=== PATIENT | male | born 1950 | race Caucasian/White ===

== ENCOUNTER 2019-08-12 09:37 | Outpatient (CLI) | payer MEDICARE, SELFPAY ==
[2019-08-12 10:36] LABS: Hematocrit 47.3 % (42.0-52.0); Mean Corpuscular HGB Conc 33.8 g/dl (32-36); Mean Corpuscular Hemoglobin 30.8 pg (26-34); Mean Platelet Volume 8.8 fl (7.4-10.4); Platelet Count Result 236 k/mm3 (150-375); Red Cell Distribution Width 13.1 % (11.5-14.5); White Blood Count 9.9 K/mm3 (4.5-10.0)
[2019-08-12 10:49] LABS: Alanine Aminotransferase 24 U/L (4-50); Albumin Level 4.6 g/dL (3.5-5.1); Alkaline Phosphatase 122 U/L (38-126); Aspartate Amino Transferase 25 U/L (17-59); Bilirubin,Total 0.7 mg/dL (0.2-1.3); Blood Urea Nitrogen 19 mg/dL (9-20); Calcium 9.1 mg/dL (8.4-10.2); Carbon Dioxide 27 mmol/L (22-30); Chloride 99 mmol/L (98-107); Estimated Glomerular Filt Rate > 60; Glucose 103 mg/dL (75-110); Potassium 3.9 mmol/L (3.4-5.0); Sodium 134 mmol/L (137-145)
[2019-08-12 11:16] LABS: Free T4 Free Thyroxine 1.16 ng/mL (0.78-2.19)
[2019-08-12 14:06] LABS: Hemoglobin A1C 5.9 % (<5.7)
[2019-08-12 15:24] LABS: Prostate Specific Antigen 0.7 ng/mL (< OR = 4.0)
[2019-08-12 15:25] LABS: Total Triiodothyronine (T3) 1.61 NG/ML (0.97-1.69)
== END 2019-08-12 09:38 | disposition home or self-care (01) ==
PROVIDERS: PCP Family Medicine; Visit Provider Family Medicine
DX: R73.09 Other abnormal glucose (principal); I10 Essential (primary) hypertension; E03.9 Hypothyroidism, unspecified; N40.0 Benign prostatic hyperplasia without lower urinary tract symptoms; E04.9 Nontoxic goiter, unspecified
CPT/HCPCS: 36415; 80053; 83036; 84153; 84439; 84443; 84480; 85027

== ENCOUNTER 2019-11-06 00:12 | Outpatient (CLI) | payer MEDICARE, SELFPAY ==
[2019-11-06 18:00] LABS: SARS-CoV-2 RNA PCR Negative
== END 2019-11-06 00:13 | disposition home or self-care (01) ==
LOC: ANHCOVIDDT 00:15
PROVIDERS: PCP Family Medicine; Visit Provider Internal Medicine Gastroenterology
DX: Z01.812 Encounter for preprocedural laboratory examination (principal); Z20.828 Contact with and (suspected) exposure to other viral communicable diseases
CPT/HCPCS: 87635; C9803; U0003

== ENCOUNTER 2019-11-09 01:04 | Day surgery (SDC) | payer MEDICARE, SELFPAY ==
[2019-11-02 10:04] VITALS: BMI 44.6
[2019-11-09 09:01] VITALS: BP 139/69; PULSE 72; RESP 20; TEMP 35.9; O2SAT 97
[2019-11-09] MEDS: LACTATED RINGERS 1,000 ML 150 ML IV CONT (09:16)
--- NOTE | 2019-11-09 09:16 | WPDANESEPPF ---
Anes - Initial Pre Proc Eval Procedure: Operation Date: 11/09/19 10:00 Proposed Procedures p Screening Colonoscopy - Gabino Guzman MD Date/Time: 11/09/19 09:16 Surgeon: Gabino Guzman MD Pre Op Diagnosis: Neoplasm Screening Patient Data Age: 69 Gender: M Height: 5 ft 7 in Weight: 127.9 kg Last Vital Signs Temp 35.9 C L 11/09/19 09:01 Pulse 72 11/09/19 09:01 Resp 20 11/09/19 09:01 BP 139/69 11/09/19 09:01 Pulse Ox 97 11/09/19 09:01 Allergies Allergy/AdvReac Type Severity Reaction Status Date / Time No Known Allergies Allergy Unverified 11/09/19 08:59 Home Medications Medication Instructions Recorded Confirmed Type aspirin 81 mg tablet,delayed 81 mg PO DAILY 06/03/19 11/09/19 History release levothyroxine 112 mcg tablet 112 mcg PO DAILY 06/03/19 11/09/19 History metoprolol succinate 50 mg 50 mg PO DAILY #90 tablet 06/15/19 11/09/19 Rx tablet,extended release 24 hr tamsulosin 0.4 mg capsule 0.4 mg PO DAILY #90 cap 07/13/19 11/02/19 Rx azelastine 137 mcg (0.1 %) nasal 137 mcg NASAL Q12H #30 ml 08/19/19 11/09/19 Rx spray aerosol atorvastatin 20 mg tablet 20 mg PO DAILY #90 tablet 08/24/19 11/09/19 Rx furosemide 20 mg tablet 20 mg PO QAM #90 tablet 08/24/19 11/09/19 Rx valsartan 320 1 tablet PO DAILY #90 tablet 09/13/19 11/02/19 Rx mg-hydrochlorothiazide 12.5 mg tablet nifedipine 60 mg tablet,extended 60 mg PO DAILY #90 tablet 10/07/19 11/09/19 Rx release liothyronine 25 mcg tablet 25 mcg PO DAILY #60 tablet 10/13/19 11/02/19 Rx fluticasone propionate 50 1 spray NASAL BID #18.2 ml 10/15/19 11/09/19 Rx mcg/actuation nasal spray,suspension peg 3350-electrolytes 236 240 ml PO Q10M #4000 ml 11/04/19 Rx gram-22.74 gram-6.74 gram-5.86 gram solution Patient hx anesthesia problems: none Family hx anesthesia problems: none PMFSH Past Medical History Medical History BPH (benign prostatic hyperplasia) Essential (primary) hypertension Hypothyroidism, unspecified Morbid (severe) obesity due to excess calories Nonrheumatic aortic (valve) stenosis Family History Family History Sibling Family history of premature coronary heart disease Social History Social History Social History: Smoking packs per day: 1 Smoking cigarettes per day: 20.0 Years smoked: 15 Smoking pack-years: 15.00 Smoking status: Former smoker Tobacco type: cigarettes Second hand tobacco smoke exposure: No Smoking end date: 06/09/89 Alcohol intake: current Drinks per week: 12 Substance use: never Substance use type: does not use Gender identity (if verbalized by the patient): Male Anes - Eval Final PreProcedure Day of Procedure 11/09/19 09:16 Patient weight: morbidly obese Heart: regular rate and rhythm Lungs: decreased breath sounds Airway: Mallampati scale class II Neurological: alert and oriented Last oral intake: >/= 8 hours ASA classification: III Emergent: no Anesthetic plan: proceed Anesthesia type and monitoring: general GIVS and standard monitoring Informed Consent: The patient's anesthetic plan and its attendant risks and benefits were discussed with the patient/family/POA. Questions were solicited and answers provided to the satisfaction of the patient/family/POA.
--- NOTE | 2019-11-09 10:06 | PM.HPGS ---
History of Present Illness History of Present Illness Consent: Risks, benefits, and alternatives have been discussed and questions answered. Patient agrees to proceed with procedure. Chief complaint: Neoplasm Screening Narrative: Gil Friedman is a 69 year old male here for screening colon, last colonoscopy 10 years ago Review of Systems Constitutional: Constitutional: Denies headache(s) and Denies weakness Eyes: Eyes: Denies blurry vision ENT: Reports Normal hearing present, Denies headache(s) and Denies neck pain Cardiovascular: Cardiovascular: Denies chest pain and Denies dyspnea Respiratory: Respiratory: Denies dyspnea Gastrointestinal: Gastrointestinal: Reports no additional gastrointestinal complaints Genitourinary: Genitourinary: Denies dysuria Musculoskeletal: Musculoskeletal: Denies neck pain Integumentary/Breasts: Skin/Breast: Denies dry skin Neurologic: Reports Normal hearing present, Denies headache(s) and Denies weakness Psychiatric: Psychiatric: Denies anxiety Endocrine: Endocrine: Denies change in body appearance Hematologic/Lymphatic: Hematologic/Lymphatic: Denies easy bleeding Allergic/Immunologic: Allergic/Immunologic: Denies urticaria PMFSH Past Medical History Medical History BPH (benign prostatic hyperplasia) Essential (primary) hypertension Hypothyroidism, unspecified Morbid (severe) obesity due to excess calories Nonrheumatic aortic (valve) stenosis Family History Family History Sibling Family history of premature coronary heart disease Social History Social History Social History: Smoking packs per day: 1 Smoking cigarettes per day: 20.0 Years smoked: 15 Smoking pack-years: 15.00 Smoking status: Former smoker Tobacco type: cigarettes Second hand tobacco smoke exposure: No Smoking end date: 06/09/89 Alcohol intake: current Drinks per week: 12 Substance use: never Substance use type: does not use Gender identity (if verbalized by the patient): Male Meds Home Medications and Allergies Home Medications Medication Instructions Recorded Confirmed Type aspirin 81 mg tablet,delayed 81 mg PO DAILY 06/03/19 11/09/19 History release levothyroxine 112 mcg tablet 112 mcg PO DAILY 06/03/19 11/09/19 History metoprolol succinate 50 mg 50 mg PO DAILY #90 tablet 06/15/19 11/09/19 Rx tablet,extended release 24 hr tamsulosin 0.4 mg capsule 0.4 mg PO DAILY #90 cap 07/13/19 11/02/19 Rx azelastine 137 mcg (0.1 %) nasal 137 mcg NASAL Q12H #30 ml 08/19/19 11/09/19 Rx spray aerosol atorvastatin 20 mg tablet 20 mg PO DAILY #90 tablet 08/24/19 11/09/19 Rx furosemide 20 mg tablet 20 mg PO QAM #90 tablet 08/24/19 11/09/19 Rx valsartan 320 1 tablet PO DAILY #90 tablet 09/13/19 11/02/19 Rx mg-hydrochlorothiazide 12.5 mg tablet nifedipine 60 mg tablet,extended 60 mg PO DAILY #90 tablet 10/07/19 11/09/19 Rx release liothyronine 25 mcg tablet 25 mcg PO DAILY #60 tablet 10/13/19 11/02/19 Rx fluticasone propionate 50 1 spray NASAL BID #18.2 ml 10/15/19 11/09/19 Rx mcg/actuation nasal spray,suspension peg 3350-electrolytes 236 240 ml PO Q10M #4000 ml 11/04/19 Rx gram-22.74 gram-6.74 gram-5.86 gram solution Allergies Allergy/AdvReac Type Severity Reaction Status Date / Time No Known Allergies Allergy Unverified 11/09/19 08:59 Vital Signs Vital Signs - 24 hr 11/09/19 09:01 Temperature 96.6 F L Pulse Rate 72 Respiratory Rate 20 Blood Pressure 139/69 Pulse Oximetry 97 Exam Const: General: comfortable and no acute distress HENMT: General nose exam: Normal nares present Eyes: General: appearance normal, both eyes and all related structures Neck: Neck: no JVD Resp: Auscultation: clear to auscultation bilaterally Cardi
[2019-11-09 10:10] VITALS: BP 116/71; PULSE 62; RESP 20; O2SAT 92
[2019-11-09 10:18] VITALS: BP 110/54; PULSE 63; RESP 16; O2SAT 94
== END 2019-11-09 10:35 | disposition home or self-care (01) ==
PROVIDERS: PCP Family Medicine; Visit Provider Internal Medicine Gastroenterology
PROC: 0DJD8ZZ Inspection of Lower Intestinal Tract, Via Natural or Artificial Opening Endoscopic (ICD-10-PCS; CPT 45378; principal; 2019-11-09 10:00)
DX: Z12.11 Encounter for screening for malignant neoplasm of colon (principal); D12.2 Benign neoplasm of ascending colon; K63.5 Polyp of colon; K57.30 Diverticulosis of large intestine without perforation or abscess without bleeding; I10 Essential (primary) hypertension; E03.9 Hypothyroidism, unspecified; I35.0 Nonrheumatic aortic (valve) stenosis; N40.0 Benign prostatic hyperplasia without lower urinary tract symptoms; E66.01 Morbid (severe) obesity due to excess calories; Z68.41 Body mass index [BMI] 40.0-44.9, adult; Z87.891 Personal history of nicotine dependence; Z79.82 Long term (current) use of aspirin
CPT/HCPCS: 45380; 88305; J2001; J2704; J7120

== ENCOUNTER 2019-11-25 07:30 | Outpatient (CLI) | payer MEDICARE, SELFPAY ==
[2019-11-25 08:32] LABS: Blood Urea Nitrogen 20 mg/dL (9-20); Calcium 8.9 mg/dL (8.4-10.2); Carbon Dioxide 27 mmol/L (22-30); Chloride 101 mmol/L (98-107); Estimated Glomerular Filt Rate > 60; Glucose 127 mg/dL (75-110); Sodium 135 mmol/L (137-145)
[2019-11-25 09:00] LABS: Thyroid Stimulating Hormone 0.566 uIU/mL (0.465-4.680)
[2019-11-25 09:02] LABS: Free T4 Free Thyroxine 1.25 ng/mL (0.78-2.19)
== END 2019-11-25 07:31 | disposition home or self-care (01) ==
PROVIDERS: PCP Family Medicine; Visit Provider Family Medicine
DX: R73.01 Impaired fasting glucose (principal); E04.9 Nontoxic goiter, unspecified; E03.9 Hypothyroidism, unspecified; I10 Essential (primary) hypertension
CPT/HCPCS: 36415; 80048; 83036; 84439; 84443

== ENCOUNTER 2020-02-22 07:29 | Outpatient (CLI) | payer MEDICARE, SELFPAY ==
[2020-02-22 07:59] LABS: Basophils Percent Auto 0.3 % (0.2-1.2); Eosinophils Absolute Auto 0.2 K/mm3 (0-0.3); Eosinophils Percent Auto 1.5 % (0-4.4); Hematocrit 45.7 % (42.0-52.0); Hemoglobin 15.5 g/dL (14.0-18.0); Immature Granulocyte Absolute 0.03 K/mm3 (0.00-0.031); Immature Granulocyte Percent A 0.3 % (0-0.5); Lymphocytes Absolute Auto 2.36 K/mm3 (0.9-3.2); Lymphocytes Percent Auto 24.2 % (18.3-44.2); Mean Corpuscular HGB Conc 33.9 g/dl (32-36); Mean Corpuscular Hemoglobin 31.1 pg (26-34); Mean Corpuscular Volume 91.8 fl (80-100); Mean Platelet Volume 9.1 fl (7.4-10.4); Monocytes Absolute Auto 0.6 K/mm3 (0.1-0.6); Monocytes Percent Auto 6.5 % (2.6-8.5); Neutrophils Absolute Auto 6.6 K/mm3 (1.3-6.7); Neutrophils Percent Auto 67.2 % (45.5-73.1); Platelet Count Result 257 k/mm3 (150-375); Red Blood Count 4.98 M/mm3 (4.6-6.20); Red Cell Distribution Width 13.1 % (11.5-14.5); White Blood Count 9.8 K/mm3 (4.5-10.0)
[2020-02-22 08:10] LABS: Alanine Aminotransferase 25 U/L (4-50); Albumin Level 4.2 g/dL (3.5-5.1); Alkaline Phosphatase 113 U/L (38-126); Anion Gap 9 mmol/L (8-16); Aspartate Amino Transferase 19 U/L (17-59); Bilirubin,Total 0.4 mg/dL (0.2-1.3); Blood Urea Nitrogen 16 mg/dL (9-20); Calcium 9.1 mg/dL (8.4-10.2); Carbon Dioxide 27 mmol/L (22-30); Chloride 99 mmol/L (98-107); Estimated Glomerular Filt Rate > 60; Glucose 116 mg/dL (75-110); Potassium 4.2 mmol/L (3.4-5.0); Sodium 135 mmol/L (137-145)
[2020-02-22 08:13] LABS: Hemoglobin A1C 5.6 % (<5.7)
== END 2020-02-22 07:30 | disposition home or self-care (01) ==
LOC: ANHLAB 07:31
PROVIDERS: PCP Family Medicine; Visit Provider Physician Assistant
DX: R73.03 Prediabetes (principal); I10 Essential (primary) hypertension
CPT/HCPCS: 36415; 80053; 83036; 85025

== ENCOUNTER 2020-05-23 09:12 | Outpatient (CLI) | payer MEDICARE, SELFPAY ==
[2020-05-23 10:03] LABS: Anion Gap 6 mmol/L (8-16); Blood Urea Nitrogen 14 mg/dL (9-20); Calcium 9.2 mg/dL (8.4-10.2); Carbon Dioxide 32 mmol/L (22-30); Chloride 97 mmol/L (98-107); Estimated Glomerular Filt Rate > 60; Glucose 115 mg/dL (75-110); Potassium 4.1 mmol/L (3.4-5.0); Sodium 135 mmol/L (137-145)
== END 2020-05-23 09:13 | disposition home or self-care (01) ==
PROVIDERS: PCP Family Medicine; Visit Provider Family Medicine
DX: E87.1 Hypo-osmolality and hyponatremia (principal)
CPT/HCPCS: 36415; 80048

== ENCOUNTER 2020-08-22 07:51 | Outpatient (CLI) | payer MEDICARE, SELFPAY ==
[2020-08-22 08:21] LABS: Cholesterol 136 mg/dL (0-200); HDL Direct 42 mg/dL; Triglycerides 111 mg/dL (<150)
[2020-08-22 08:33] LABS: LDL Cholesterol Direct 71 mg/dL
[2020-08-22 09:10] LABS: Free T4 Free Thyroxine 1.09 ng/mL (0.78-2.19)
[2020-08-22 09:14] LABS: Total Triiodothyronine (T3) 1.26 NG/ML (0.97-1.69)
[2020-08-22 09:15] LABS: Hemoglobin A1C 5.4 % (<5.7)
[2020-08-24 19:52] LABS: PSA, Free 0.32 ng/mL; PSA, Total 0.5 ng/mL (<=4.0)
== END 2020-08-22 07:52 | disposition home or self-care (01) ==
LOC: ANHLAB 07:56
PROVIDERS: PCP Family Medicine; Visit Provider Family Medicine
DX: E78.2 Mixed hyperlipidemia (principal); E03.9 Hypothyroidism, unspecified; N40.1 Benign prostatic hyperplasia with lower urinary tract symptoms; E11.9 Type 2 diabetes mellitus without complications
CPT/HCPCS: 36415; 80061; 83036; 84153; 84154; 84439; 84443; 84480

== ENCOUNTER 2020-11-21 07:17 | Outpatient (CLI) | payer MEDICARE, SELFPAY ==
[2020-11-21 07:53] LABS: Potassium 3.8 mmol/L (3.4-5.0)
[2020-11-21 07:56] LABS: Anion Gap 11 mmol/L (8-16); Blood Urea Nitrogen 15 mg/dL (9-20); Calcium 9.1 mg/dL (8.4-10.2); Carbon Dioxide 25 mmol/L (22-30); Chloride 102 mmol/L (98-107); Estimated Glomerular Filt Rate > 60; Glucose 120 mg/dL (75-110); Sodium 138 mmol/L (137-145)
[2020-11-21 07:59] LABS: Hemoglobin A1C 5.7 % (<5.7)
[2020-11-21 08:22] LABS: Total Triiodothyronine (T3) 1.45 NG/ML (0.97-1.69)
[2020-11-21 08:44] LABS: Free T4 Free Thyroxine 1.14 ng/mL (0.78-2.19)
== END 2020-11-21 07:18 | disposition home or self-care (01) ==
PROVIDERS: PCP Family Medicine; Visit Provider Family Medicine
DX: E03.9 Hypothyroidism, unspecified (principal); E87.1 Hypo-osmolality and hyponatremia; R73.09 Other abnormal glucose
CPT/HCPCS: 36415; 80048; 83036; 84439; 84443; 84480

== ENCOUNTER 2021-04-24 08:07 | Outpatient (CLI) | payer MEDICARE, SELFPAY ==
[2021-04-24 08:47] LABS: Alanine Aminotransferase 21 U/L (4-50); Albumin Level 4.5 g/dL (3.5-5.1); Alkaline Phosphatase 115 U/L (38-126); Anion Gap 9 mmol/L (8-16); Aspartate Amino Transferase 21 U/L (17-59); Bilirubin,Total 0.5 mg/dL (0.2-1.3); Blood Urea Nitrogen 14 mg/dL (9-20); Calcium 9.1 mg/dL (8.4-10.2); Carbon Dioxide 26 mmol/L (22-30); Chloride 97 mmol/L (98-107); Cholesterol 146 mg/dL (0-200); Estimated Glomerular Filt Rate > 60; Glucose 112 mg/dL (65-110); HDL Direct 46 mg/dL; Sodium 132 mmol/L (137-145); Triglycerides 98 mg/dL (<150)
[2021-04-24 08:58] LABS: LDL Cholesterol Direct 77 mg/dL
[2021-04-24 09:10] LABS: Free T4 Free Thyroxine 1.16 ng/mL (0.78-2.19)
== END 2021-04-24 08:08 | disposition home or self-care (01) ==
LOC: ANHLAB 08:10
PROVIDERS: PCP Family Medicine; Visit Provider Family Medicine
DX: E78.2 Mixed hyperlipidemia (principal); I10 Essential (primary) hypertension; E03.9 Hypothyroidism, unspecified
CPT/HCPCS: 36415; 80053; 80061; 84439; 84443

== ENCOUNTER 2021-07-20 08:55 | Outpatient (CLI) | payer MEDICARE, SELFPAY ==
[2021-07-20 09:37] LABS: Hemoglobin A1C 5.5 % (<5.7)
[2021-07-20 09:40] LABS: Alanine Aminotransferase 18 U/L (4-50); Albumin Level 4.2 g/dL (3.5-5.1); Alkaline Phosphatase 113 U/L (38-126); Anion Gap 9 mmol/L (8-16); Aspartate Amino Transferase 21 U/L (17-59); Bilirubin,Total 0.5 mg/dL (0.2-1.3); Blood Urea Nitrogen 16 mg/dL (9-20); Carbon Dioxide 26 mmol/L (22-30); Chloride 98 mmol/L (98-107); Cholesterol 145 mg/dL (0-200); Estimated Glomerular Filt Rate > 60; Glucose 123 mg/dL (65-110); HDL Direct 39 mg/dL; Sodium 133 mmol/L (137-145); Triglycerides 110 mg/dL (<150); Uric Acid 5.5 mg/dL (3.5-8.5)
[2021-07-20 09:51] LABS: LDL Cholesterol Direct 81 mg/dL
[2021-07-20 09:57] LABS: Free T4 Free Thyroxine 1.13 ng/mL (0.78-2.19)
[2021-07-20 10:09] LABS: Total Triiodothyronine (T3) 2.11 NG/ML (0.97-1.69)
[2021-07-23 20:44] LABS: PSA, Free 0.39 ng/mL; PSA, Total 0.6 ng/mL (<=4.0)
== END 2021-07-20 08:56 | disposition home or self-care (01) ==
PROVIDERS: PCP Family Medicine; Visit Provider Family Medicine
DX: I10 Essential (primary) hypertension (principal); E03.9 Hypothyroidism, unspecified; E79.0 Hyperuricemia without signs of inflammatory arthritis and tophaceous disease; E11.9 Type 2 diabetes mellitus without complications; E78.2 Mixed hyperlipidemia; N40.1 Benign prostatic hyperplasia with lower urinary tract symptoms; R97.20 Elevated prostate specific antigen [PSA]
CPT/HCPCS: 36415; 80053; 80061; 83036; 84153; 84154; 84439; 84443; 84480; 84550

== ENCOUNTER 2021-08-30 08:07 | Outpatient (CLI) | payer MEDICARE, SELFPAY ==
[2021-08-30 09:23] LABS: Sodium Urine Random 157 meq/L
[2021-08-30 10:17] LABS: Anion Gap 8 mmol/L (8-16); Blood Urea Nitrogen 18 mg/dL (9-20); Calcium 8.5 mg/dL (8.4-10.2); Carbon Dioxide 26 mmol/L (22-30); Chloride 100 mmol/L (98-107); Estimated Glomerular Filt Rate > 60; Glucose 107 mg/dL (65-110); Potassium 4.3 mmol/L (3.4-5.0); Sodium 134 mmol/L (137-145)
== END 2021-08-30 08:08 | disposition home or self-care (01) ==
LOC: ANHLAB 08:09
PROVIDERS: PCP Family Medicine; Visit Provider Family Medicine
DX: E87.1 Hypo-osmolality and hyponatremia (principal)
CPT/HCPCS: 36415; 80048; 84300

== ENCOUNTER 2021-10-25 09:24 | Outpatient (CLI) | payer MEDICARE, SELFPAY ==
[2021-10-25 10:46] LABS: Total Triiodothyronine (T3) 1.77 NG/ML (0.97-1.69)
== END 2021-10-25 09:25 | disposition home or self-care (01) ==
LOC: ANHLAB 09:26
PROVIDERS: PCP Family Medicine; Visit Provider Nurse Practitioner Gerontology
DX: E03.9 Hypothyroidism, unspecified (principal)
CPT/HCPCS: 36415; 84480

== ENCOUNTER 2022-04-01 07:30 | Outpatient (CLI) | payer MEDICARE, SELFPAY ==
[2022-04-01 08:16] LABS: Alanine Aminotransferase 23 U/L (6-50); Albumin Level 4.4 g/dL (3.5-5.1); Alkaline Phosphatase 112 U/L (38-126); Anion Gap 13 mmol/L (8-16); Aspartate Amino Transferase 24 U/L (17-59); Bilirubin,Total 0.5 mg/dL (0.2-1.3); Blood Urea Nitrogen 18 mg/dL (9-20); Calcium 8.7 mg/dL (8.4-10.2); Carbon Dioxide 25 mmol/L (22-30); Chloride 98 mmol/L (98-107); Cholesterol 142 mg/dL (0-200); Estimated Glomerular Filt Rate > 60; Glucose 114 mg/dL (65-110); HDL Direct 41 mg/dL; Potassium 4.1 mmol/L (3.4-5.0); Sodium 136 mmol/L (137-145); Triglycerides 146 mg/dL (<150)
[2022-04-01 08:27] LABS: LDL Cholesterol Direct 70 mg/dL
[2022-04-01 08:28] LABS: Hemoglobin A1C 5.7 % (<5.7)
[2022-04-01 12:11] LABS: Free T4 Free Thyroxine Reflex 1.14 ng/dL (0.78-2.19)
[2022-04-01 13:21] LABS: Basophils Percent Auto 0.4 % (0.2-1.2); Eosinophils Absolute Auto 0.1 K/mm3 (0-0.3); Hematocrit 42.7 % (42.0-52.0); Hemoglobin 14.3 g/dL (14.0-18.0); Immature Granulocyte Absolute 0.02 K/mm3 (0.00-0.031); Immature Granulocyte Percent A 0.3 % (0-0.5); Lymphocytes Absolute Auto 2.06 K/mm3 (0.9-3.2); Lymphocytes Percent Auto 29.5 % (18.3-44.2); Mean Corpuscular HGB Conc 33.5 g/dl (32-36); Mean Corpuscular Hemoglobin 31.3 pg (26-34); Mean Corpuscular Volume 93.4 fl (80-100); Mean Platelet Volume 8.8 fl (7.4-10.4); Monocytes Absolute Auto 0.5 K/mm3 (0.1-0.6); Monocytes Percent Auto 7.4 % (2.6-8.5); Neutrophils Absolute Auto 4.3 K/mm3 (1.3-6.7); Neutrophils Percent Auto 61.4 % (45.5-73.1); Platelet Count Result 253 k/mm3 (150-375); Red Blood Count 4.57 M/mm3 (4.6-6.20); Red Cell Distribution Width 14.3 % (11.5-14.5)
[2022-04-01 13:57] LABS: Total Triiodothyronine (T3) 1.33 NG/ML (0.97-1.69)
== END 2022-04-01 07:31 | disposition home or self-care (01) ==
LOC: ANHLAB 07:32
PROVIDERS: PCP Family Medicine; Visit Provider Physician Assistant
DX: R73.03 Prediabetes (principal); I10 Essential (primary) hypertension; E03.9 Hypothyroidism, unspecified
CPT/HCPCS: 36415; 80053; 80061; 83036; 84439; 84443; 84480; 85025

== ENCOUNTER 2022-06-06 07:13 | Outpatient (CLI) | payer MEDICARE, SELFPAY | END 2022-06-06 07:14 | disposition home or self-care (01) | LOC: ANHLAB 07:15 | PROVIDERS: PCP Family Medicine; Visit Provider Physician Assistant | DX: E03.9 Hypothyroidism, unspecified (principal) | CPT/HCPCS: 36415; 84439; 84443 ==

== ENCOUNTER 2022-07-23 07:56 | Outpatient (CLI) | payer MEDICARE, SELFPAY ==
[2022-07-23 15:33] LABS: Basophils Percent Auto 0.4 % (0.2-1.2); Eosinophils Absolute Auto 0.1 K/mm3 (0-0.3); Eosinophils Percent Auto 0.9 % (0-4.4); Hemoglobin 14.9 g/dL (14.0-18.0); Immature Granulocyte Absolute 0.02 K/mm3 (0.00-0.031); Immature Granulocyte Percent A 0.3 % (0-0.5); Lymphocytes Absolute Auto 2.03 K/mm3 (0.9-3.2); Lymphocytes Percent Auto 28.8 % (18.3-44.2); Mean Corpuscular HGB Conc 33.9 g/dl (32-36); Mean Corpuscular Hemoglobin 31.4 pg (26-34); Mean Corpuscular Volume 92.8 fl (80-100); Mean Platelet Volume 9.3 fl (7.4-10.4); Monocytes Absolute Auto 0.5 K/mm3 (0.1-0.6); Monocytes Percent Auto 7.1 % (2.6-8.5); Neutrophils Absolute Auto 4.4 K/mm3 (1.3-6.7); Neutrophils Percent Auto 62.5 % (45.5-73.1); Platelet Count Result 242 k/mm3 (150-375); Red Blood Count 4.74 M/mm3 (4.6-6.20); Red Cell Distribution Width 13.4 % (11.5-14.5); White Blood Count 7.1 K/mm3 (4.5-10.0)
[2022-07-23 16:25] LABS: Hemoglobin A1C 5.5 % (<5.7)
[2022-07-23 16:37] LABS: Alanine Aminotransferase 25 U/L (6-50); Albumin Level 4.3 g/dL (3.5-5.1); Alkaline Phosphatase 107 U/L (38-126); Anion Gap 6 mmol/L (8-16); Aspartate Amino Transferase 27 U/L (17-59); Bilirubin,Total 0.6 mg/dL (0.2-1.3); Blood Urea Nitrogen 19 mg/dL (9-20); Calcium 8.5 mg/dL (8.4-10.2); Carbon Dioxide 29 mmol/L (22-30); Chloride 101 mmol/L (98-107); Cholesterol 138 mg/dL (0-200); Estimated Glomerular Filt Rate > 60; Glucose 115 mg/dL (65-110); HDL Direct 41 mg/dL; Potassium 3.9 mmol/L (3.4-5.0); Sodium 136 mmol/L (137-145); Triglycerides 73 mg/dL (<150)
[2022-07-23 16:48] LABS: LDL Cholesterol Direct 71 mg/dL
[2022-07-23 19:13] LABS: Free T4 Free Thyroxine 1.24 ng/mL (0.78-2.19)
== END 2022-07-23 07:57 | disposition home or self-care (01) ==
LOC: ANHGOSHLAB 08:00
PROVIDERS: PCP Family Medicine; Visit Provider Nurse Practitioner Gerontology
DX: R73.09 Other abnormal glucose (principal); E87.1 Hypo-osmolality and hyponatremia; R73.03 Prediabetes; I10 Essential (primary) hypertension; E03.9 Hypothyroidism, unspecified; E66.01 Morbid (severe) obesity due to excess calories
CPT/HCPCS: 36415; 80053; 80061; 83036; 84439; 84443; 84480; 85025

== ENCOUNTER → 2022-07-30 10:59 | Outpatient (CLI) | payer MEDICARE, SELFPAY ==
--- NOTE | ~2022-07-30 | XR_ITS ---
XR knee LT 3V 07/30/2022 11:09 Indication: Left knee pain Procedure: 07/27/2015 Comparison: No prior studies for comparison. Findings: There is moderate tricompartment osteoarthritis of the left knee. No significant joint effu clinton. There is extensive atherosclerosis. No fracture or traumatic malalignment. No significant joint effusion. Impression: 1: Moderate osteoarthritis of the left knee. Reviewed, dictated and finalized at location L. UGRAPH OPERATOR Impression: 1: Moderate osteoarthritis of the left knee.
== END ==
PROVIDERS: PCP Family Medicine; Visit Provider Family Medicine
DX: M25.562 Pain in left knee (principal); M17.12 Unilateral primary osteoarthritis, left knee
CPT/HCPCS: 73562

== ENCOUNTER 2022-11-22 09:44 | Outpatient (CLI) | payer MEDICARE, SELFPAY ==
[2022-11-22 16:32] LABS: Basophils Percent Auto 0.3 % (0.2-1.2); Eosinophils Absolute Auto 0.2 K/mm3 (0-0.3); Eosinophils Percent Auto 1.8 % (0-4.4); Hemoglobin 14.2 g/dL (14.0-18.0); Immature Granulocyte Absolute 0.02 K/mm3 (0.00-0.031); Immature Granulocyte Percent A 0.2 % (0-0.5); Lymphocytes Absolute Auto 2.49 K/mm3 (0.9-3.2); Lymphocytes Percent Auto 28.4 % (18.3-44.2); Mean Corpuscular HGB Conc 32.3 g/dl (32-36); Mean Corpuscular Hemoglobin 30.6 pg (26-34); Mean Corpuscular Volume 94.8 fl (80-100); Mean Platelet Volume 9.5 fl (7.4-10.4); Monocytes Absolute Auto 0.6 K/mm3 (0.1-0.6); Monocytes Percent Auto 6.9 % (2.6-8.5); Neutrophils Absolute Auto 5.5 K/mm3 (1.3-6.7); Neutrophils Percent Auto 62.4 % (45.5-73.1); Platelet Count Result 243 k/mm3 (150-375); Red Blood Count 4.64 M/mm3 (4.6-6.20); Red Cell Distribution Width 13.2 % (11.5-14.5); White Blood Count 8.8 K/mm3 (4.5-10.0)
[2022-11-22 16:56] LABS: Free T4 Free Thyroxine 1.21 ng/mL (0.78-2.19)
[2022-11-22 16:59] LABS: Alanine Aminotransferase 22 U/L (6-50); Albumin Level 4.2 g/dL (3.5-5.1); Alkaline Phosphatase 118 U/L (38-126); Anion Gap 3 mmol/L (8-16); Aspartate Amino Transferase 32 U/L (17-59); Bilirubin,Total 0.7 mg/dL (0.2-1.3); Blood Urea Nitrogen 15 mg/dL (9-20); Calcium 8.5 mg/dL (8.4-10.2); Carbon Dioxide 30 mmol/L (22-30); Chloride 101 mmol/L (98-107); Cholesterol 119 mg/dL (0-200); Estimated Glomerular Filt Rate > 60; Glucose 107 mg/dL (65-110); HDL Direct 38 mg/dL; LDL Cholesterol Direct 63 mg/dL; Sodium 134 mmol/L (137-145)
[2022-11-22 17:02] LABS: Triglycerides 79 mg/dL (<150)
[2022-11-22 17:14] LABS: Total Triiodothyronine (T3) 2.05 NG/ML (0.97-1.69)
== END 2022-11-22 09:45 | disposition home or self-care (01) ==
LOC: ANHGOSHLAB 09:48
PROVIDERS: PCP Family Medicine; Visit Provider Nurse Practitioner Gerontology
DX: E78.5 Hyperlipidemia, unspecified (principal); E03.9 Hypothyroidism, unspecified; I10 Essential (primary) hypertension
CPT/HCPCS: 36415; 80053; 80061; 84439; 84443; 84480; 85025

== ENCOUNTER 2023-03-25 08:19 | Outpatient (CLI) | payer MEDICARE, SELFPAY ==
[2023-03-25 18:40] LABS: Alanine Aminotransferase 19 U/L (6-50); Alkaline Phosphatase 105 U/L (38-126); Anion Gap 6 mmol/L (8-16); Aspartate Amino Transferase 29 U/L (17-59); Bilirubin,Total 0.6 mg/dL (0.2-1.3); Blood Urea Nitrogen 16 mg/dL (9-20); Calcium 8.6 mg/dL (8.4-10.2); Carbon Dioxide 29 mmol/L (22-30); Chloride 99 mmol/L (98-107); Cholesterol 127 mg/dL (0-200); Estimated Glomerular Filt Rate > 60; Glucose 106 mg/dL (65-110); HDL Direct 39 mg/dL; Sodium 134 mmol/L (137-145); Triglycerides 66 mg/dL (<150)
[2023-03-25 18:50] LABS: LDL Cholesterol Direct 69 mg/dL
[2023-03-25 19:25] LABS: Free T4 Free Thyroxine 1.09 ng/mL (0.78-2.19)
[2023-03-31 13:09] LABS: Triiodothyronine T3 Free 4.1 pg/mL (2.3-4.2)
== END 2023-03-25 08:20 | disposition home or self-care (01) ==
PROVIDERS: PCP Family Medicine; Visit Provider Physician Assistant
DX: R73.03 Prediabetes (principal); E07.9 Disorder of thyroid, unspecified; I10 Essential (primary) hypertension; E03.9 Hypothyroidism, unspecified; E87.1 Hypo-osmolality and hyponatremia
CPT/HCPCS: 36415; 80053; 80061; 84439; 84443; 84481

== ENCOUNTER 2023-07-01 08:24 | Outpatient (CLI) | payer MEDICARE, SELFPAY ==
[2023-07-01 14:21] LABS: Basophils Percent Auto 0.4 % (0.2-1.2); Eosinophils Absolute Auto 0.1 K/mm3 (0-0.3); Hematocrit 45.1 % (42.0-52.0); Hemoglobin 14.5 g/dL (14.0-18.0); Immature Granulocyte Absolute 0.03 K/mm3 (0.00-0.031); Immature Granulocyte Percent A 0.4 % (0-0.5); Lymphocytes Absolute Auto 2.25 K/mm3 (0.9-3.2); Lymphocytes Percent Auto 30.9 % (18.3-44.2); Mean Corpuscular HGB Conc 32.2 g/dl (32-36); Mean Corpuscular Hemoglobin 30.8 pg (26-34); Mean Corpuscular Volume 95.8 fl (80-100); Mean Platelet Volume 9.8 fl (7.4-10.4); Monocytes Absolute Auto 0.5 K/mm3 (0.1-0.6); Monocytes Percent Auto 6.5 % (2.6-8.5); Neutrophils Absolute Auto 4.4 K/mm3 (1.3-6.7); Neutrophils Percent Auto 60.8 % (45.5-73.1); Platelet Count Result 236 k/mm3 (150-375); Red Blood Count 4.71 M/mm3 (4.6-6.20); Red Cell Distribution Width 13.4 % (11.5-14.5); White Blood Count 7.3 K/mm3 (4.5-10.0)
[2023-07-01 14:37] LABS: Hemoglobin A1C 5.6 % (<5.7)
[2023-07-01 14:51] LABS: Cholesterol 144 mg/dL (0-200); HDL Direct 44 mg/dL; Triglycerides 67 mg/dL (<150)
[2023-07-01 14:55] LABS: Free T4 Free Thyroxine 1.21 ng/mL (0.78-2.19)
[2023-07-01 15:01] LABS: Alanine Aminotransferase 20 U/L (6-50); Albumin Level 4.2 g/dL (3.5-5.1); Alkaline Phosphatase 108 U/L (38-126); Anion Gap 8 mmol/L (8-16); Aspartate Amino Transferase 49 U/L (17-59); Bilirubin,Total 0.7 mg/dL (0.2-1.3); Blood Urea Nitrogen 19 mg/dL (9-20); Calcium 8.7 mg/dL (8.4-10.2); Carbon Dioxide 28 mmol/L (22-30); Chloride 100 mmol/L (98-107); Estimated Glomerular Filt Rate > 60; Glucose 102 mg/dL (65-110); Potassium 4.1 mmol/L (3.4-5.0); Sodium 136 mmol/L (137-145)
[2023-07-01 15:04] LABS: LDL Cholesterol Direct 78 mg/dL
[2023-07-05 07:40] LABS: Triiodothyronine T3 Free 3.7 pg/mL (2.3-4.2)
== END 2023-07-01 08:25 | disposition home or self-care (01) ==
PROVIDERS: PCP Family Medicine; Visit Provider Physician Assistant
DX: E03.9 Hypothyroidism, unspecified (principal); E07.9 Disorder of thyroid, unspecified; E78.5 Hyperlipidemia, unspecified; R73.03 Prediabetes; R73.09 Other abnormal glucose
CPT/HCPCS: 36415; 80053; 80061; 83036; 84439; 84443; 84481; 85025

== ENCOUNTER 2023-08-28 14:46 | Outpatient (CLI) | payer MEDICARE, SELFPAY ==
--- NOTE | ~2023-08-28 | XR_ITS ---
XR chest 2V DATE: 08/28/2023 15:04 INDICATION: Chest pain and dyspnea on exertion for one week PA and lateral views TECHNIQUE: PA and lateral views COMPARISON: None FINDINGS: Normal heart size. Aortic arch calcification. No hilar or mediastinal enlargement. No pulmonary infiltrate or consolidation, pleural effusion or pulmonary vascular congestion or pneumo thorax. Diffuse idiopathic skeletal hyperostosis of the thoracic spine. Degenerative spurring of the lumbar s pine. IMPRESSION: No active cardiopulmonary disease Reviewed, dictated and finalized at location L.
== END 2023-08-28 14:47 | disposition home or self-care (01) ==
LOC: ANHIMG 14:48
PROVIDERS: PCP Family Medicine; Visit Provider Family Medicine
DX: R06.02 Shortness of breath (principal)
CPT/HCPCS: 71046

== ENCOUNTER 2023-10-06 07:49 | Outpatient (CLI) | payer MEDICARE, SELFPAY ==
[2023-10-06 19:30] LABS: Alanine Aminotransferase 22 U/L (6-50); Albumin Level 4.3 g/dL (3.5-5.1); Alkaline Phosphatase 114 U/L (38-126); Anion Gap 9 mmol/L (4-12); Aspartate Amino Transferase 28 U/L (17-59); Bilirubin,Total 0.7 mg/dL (0.2-1.3); Blood Urea Nitrogen 17 mg/dL (9-20); Calcium 9.4 mg/dL (8.4-10.2); Carbon Dioxide 26 mmol/L (22-30); Chloride 100 mmol/L (98-107); Cholesterol 129 mg/dL (0-200); Estimated Glomerular Filt Rate > 60; Glucose 110 mg/dL (65-110); HDL Direct 43 mg/dL; Potassium 4.2 mmol/L (3.4-5.0); Sodium 135 mmol/L (137-145); Triglycerides 98 mg/dL (<150)
[2023-10-06 19:41] LABS: LDL Cholesterol Direct 73 mg/dL
[2023-10-06 20:26] LABS: Hemoglobin A1C 5.6 % (<5.7)
== END 2023-10-06 07:50 | disposition home or self-care (01) ==
PROVIDERS: PCP Family Medicine; Visit Provider Physician Assistant
DX: E07.9 Disorder of thyroid, unspecified (principal); R73.09 Other abnormal glucose; I10 Essential (primary) hypertension; E78.5 Hyperlipidemia, unspecified; E03.9 Hypothyroidism, unspecified; R73.03 Prediabetes
CPT/HCPCS: 36415; 80053; 80061; 83036; 84439; 84443

== ENCOUNTER 2023-11-18 09:23 | Outpatient (CLI) | payer MEDICARE, SELFPAY ==
[2023-11-18 13:13] LABS: Anion Gap 8 mmol/L (4-12); Blood Urea Nitrogen 17 mg/dL (9-20); Carbon Dioxide 27 mmol/L (22-30); Chloride 100 mmol/L (98-107); Estimated Glomerular Filt Rate > 60; Glucose 105 mg/dL (65-110); Potassium 4.3 mmol/L (3.4-5.0); Sodium 135 mmol/L (137-145)
== END 2023-11-18 09:24 | disposition home or self-care (01) ==
LOC: ANHGOSHLAB 09:24
PROVIDERS: PCP Family Medicine; Visit Provider Family Medicine
DX: R60.0 Localized edema (principal)
CPT/HCPCS: 36415; 80048

== ENCOUNTER 2024-01-07 09:08 | Outpatient (CLI) | payer MEDICARE, SELFPAY ==
[2024-01-07 13:56] LABS: Thyroid Stimulating Hormone 0.295 uIU/mL (0.465-4.680)
[2024-01-07 14:19] LABS: Free T4 Free Thyroxine 1.18 ng/mL (0.78-2.19)
== END 2024-01-07 09:09 | disposition home or self-care (01) ==
PROVIDERS: PCP Family Medicine; Visit Provider Student in an Organized Health Care Education/Training Program
DX: E07.9 Disorder of thyroid, unspecified (principal)
CPT/HCPCS: 36415; 84439; 84443

== ENCOUNTER 2024-03-12 07:56 | Outpatient (CLI) | payer MEDICARE, SELFPAY ==
[2024-03-12 16:54] LABS: Free T4 Free Thyroxine 1.27 ng/mL (0.78-2.19)
[2024-03-12 16:59] LABS: Thyroid Stimulating Hormone 0.583 uIU/mL (0.465-4.680)
== END 2024-03-12 07:57 | disposition home or self-care (01) ==
PROVIDERS: PCP Family Medicine; Visit Provider Physician Assistant
DX: E07.9 Disorder of thyroid, unspecified (principal)
CPT/HCPCS: 36415; 84439; 84443

== ENCOUNTER 2024-05-13 08:02 | Outpatient (CLI) | payer MEDICARE, SELFPAY ==
[2024-05-13 12:39] LABS: Hematocrit 40.9 % (42.0-52.0); Hemoglobin 13.6 g/dL (14.0-18.0); Mean Corpuscular HGB Conc 33.3 g/dl (32-36); Mean Corpuscular Hemoglobin 31.1 pg (26-34); Mean Corpuscular Volume 93.6 fl (80-100); Mean Platelet Volume 9.8 fl (7.4-10.4); Platelet Count Result 254 k/mm3 (150-375); Red Blood Count 4.37 M/mm3 (4.6-6.20); Red Cell Distribution Width 12.9 % (11.5-14.5); White Blood Count 8.2 K/mm3 (4.5-10.0)
[2024-05-13 13:01] LABS: Alanine Aminotransferase 18 U/L (6-50); Albumin Level 4.3 g/dL (3.5-5.1); Alkaline Phosphatase 132 U/L (38-126); Anion Gap 6 mmol/L (4-12); Aspartate Amino Transferase 79 U/L (17-59); Bilirubin,Total 0.8 mg/dL (0.2-1.3); Blood Urea Nitrogen 23 mg/dL (9-20); Calcium 8.7 mg/dL (8.4-10.2); Carbon Dioxide 28 mmol/L (22-30); Chloride 97 mmol/L (98-107); Cholesterol 120 mg/dL (0-200); Estimated Glomerular Filt Rate > 60; Glucose 97 mg/dL (65-110); HDL Direct 49 mg/dL; Sodium 131 mmol/L (137-145); Triglycerides 62 mg/dL (<150)
[2024-05-13 13:11] LABS: LDL Cholesterol Direct 43 mg/dL
[2024-05-13 13:14] LABS: Free T4 Free Thyroxine 1.42 ng/dL (0.78-2.19)
[2024-05-13 13:26] LABS: Thyroid Stimulating Hormone 0.273 uIU/mL (0.465-4.680)
[2024-05-13 14:08] LABS: Hemoglobin A1C 5.5 % (<5.7)
== END 2024-05-13 08:03 | disposition home or self-care (01) ==
LOC: ANHGOSHLAB 08:03
PROVIDERS: PCP Family Medicine; Visit Provider Physician Assistant
DX: E78.5 Hyperlipidemia, unspecified (principal); E03.9 Hypothyroidism, unspecified; R73.03 Prediabetes; E07.9 Disorder of thyroid, unspecified; I10 Essential (primary) hypertension; R73.09 Other abnormal glucose; E66.2 Morbid (severe) obesity with alveolar hypoventilation
CPT/HCPCS: 36415; 80053; 80061; 83036; 84439; 84443; 85027

== ENCOUNTER 2024-08-13 08:08 | Outpatient (CLI) | payer MEDICARE, SELFPAY ==
--- OUTSIDE RECORDS SUMMARY | 2024-08-13 08:15 | XMS_ITS | Referral Summary ---
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 [place] [id number] MEDICARE SOLUTIONS Care Teams Software Team Leader Relationship Specialty Start Date End Date Aga Mondragon MD [address] [place] [address] PCP - General Family Medicine 04/08/22 Aga Mondragon MD [address] [place], [place] [id number] Family Medicine 04/08/22
--- OUTSIDE RECORDS SUMMARY | 2024-08-13 08:15 | XMS_ITS | Clinical Summary ---
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 Gender Identity Not on file Sexual Orientation Not on file Last Filed Vital Signs Vital Sign Reading Time Taken Comments Blood Pressure - - Pulse - - Temperature 36.4 C (97.5 F) 10/26/2019 1:09 PM CDT Respiratory Rate - - Oxygen Saturation - - Inhaled Oxygen Concentration - - Weight 127 kg (280 lb) 08/05/2017 2:31 PM SPARK PLUG ASSEMBLER Height 170.2 cm (5' 7 ) 08/05/2017 2:31 PM SPARK PLUG ASSEMBLER Body Mass Index 43.85 08/05/2017 2:31 PM SPARK PLUG ASSEMBLER Plan of Treatment Health Maintenance Due Date Last Done Comments Colon Cancer Screening-Colonoscopy 1950 Depression Screening 1950 Fall Risk Assessment 1950 Hepatitis C Screening 1950 DTaP/Tdap/Td Vaccine (1 - Tdap) 1963 Hepatitis B Screening 1970 Abdominal Aortic Aneurysm (A AA) Screen 2017 Well Visit 65+ 2017 Covid-19 Vaccine (4 - 2023-2 5 season) 2024 03/12/2021, 09/01/2020, 08/04/2020 Influenza Vaccine (#1) 2024 , 03/12/2021, 03/09/2020, Additional history exists Pneumococcal vaccine 65+ Completed 021, 10/12/2019, 05/08/2017 Zoster Vaccine Completed 10/24/2021, 06/08/2021 Insurance MEDICARE SOLUTIONS MED[employer]ARE [employer]UTIONS Care Teams Antisqueak Filler Relationship Specialty Start Date End Date Aga Mondragon MD [address] [facility] [address] [place] [address] PCP - General Family Medicine 04/08/22 Aga Mondragon MD [address] [facility] [address] [place] [address] Family Medicine 04/08/22
[2024-08-13 13:39] LABS: Hematocrit 40.8 % (42.0-52.0); Hemoglobin 13.6 g/dL (14.0-18.0); Mean Corpuscular HGB Conc 33.3 g/dl (32-36); Mean Corpuscular Hemoglobin 31.6 pg (26-34); Mean Corpuscular Volume 94.7 fl (80-100); Mean Platelet Volume 9.5 fl (7.4-10.4); Platelet Count Result 236 k/mm3 (150-375); Red Blood Count 4.31 M/mm3 (4.6-6.20); Red Cell Distribution Width 13.3 % (11.5-14.5); White Blood Count 6.9 K/mm3 (4.5-10.0)
[2024-08-13 13:59] LABS: Alanine Aminotransferase 24 U/L (6-50); Alkaline Phosphatase 116 U/L (38-126); Anion Gap 7 mmol/L (4-12); Aspartate Amino Transferase 60 U/L (17-59); Bilirubin,Total 0.4 mg/dL (0.2-1.3); Blood Urea Nitrogen 20 mg/dL (9-20); Calcium 8.8 mg/dL (8.4-10.2); Carbon Dioxide 29 mmol/L (22-30); Chloride 96 mmol/L (98-107); Estimated Glomerular Filt Rate > 60; Glucose 106 mg/dL (65-110); Potassium 3.9 mmol/L (3.4-5.0); Sodium 132 mmol/L (137-145)
[2024-08-13 14:32] LABS: Prostate Specific Antigen 0.9 ng/mL (< OR = 4.0); Thyroid Stimulating Hormone 0.465 uIU/mL (0.465-4.680)
[2024-08-13 15:24] LABS: Free T4 Free Thyroxine 1.19 ng/dL (0.78-2.19)
== END 2024-08-13 08:09 | disposition home or self-care (01) ==
LOC: ANHGOSHLAB 08:09
PROVIDERS: PCP Family Medicine; Visit Provider Family Medicine
DX: E03.9 Hypothyroidism, unspecified (principal); D64.9 Anemia, unspecified; I10 Essential (primary) hypertension; R35.1 Nocturia
CPT/HCPCS: 36415; 80053; 84153; 84439; 84443; 85027

== ENCOUNTER 2024-11-30 08:02 | Outpatient (CLI) | payer MEDICARE, SELFPAY ==
[2024-11-30 13:05] LABS: Basophils Percent Auto 0.3 % (0.2-1.2); Eosinophils Absolute Auto 0.1 K/mm3 (0-0.3); Eosinophils Percent Auto 0.7 % (0-4.4); Hematocrit 41.9 % (42.0-52.0); Hemoglobin 13.9 g/dL (14.0-18.0); Immature Granulocyte Absolute 0.02 K/mm3 (0.00-0.031); Immature Granulocyte Percent A 0.3 % (0-0.5); Lymphocytes Absolute Auto 1.71 K/mm3 (0.9-3.2); Lymphocytes Percent Auto 23.4 % (18.3-44.2); Mean Corpuscular HGB Conc 33.2 g/dl (32-36); Mean Corpuscular Volume 96.5 fl (80-100); Mean Platelet Volume 8.9 fl (7.4-10.4); Monocytes Absolute Auto 0.6 K/mm3 (0.1-0.6); Monocytes Percent Auto 8.6 % (2.6-8.5); Neutrophils Absolute Auto 4.9 K/mm3 (1.3-6.7); Neutrophils Percent Auto 66.7 % (45.5-73.1); Platelet Count Result 247 k/mm3 (150-375); Red Blood Count 4.34 M/mm3 (4.6-6.20); Red Cell Distribution Width 13.4 % (11.5-14.5); White Blood Count 7.3 K/mm3 (4.5-10.0)
[2024-11-30 13:35] LABS: Iron 77 ug/dL (49-181)
[2024-11-30 13:40] LABS: Alanine Aminotransferase 21 U/L (6-50); Albumin Level 4.1 g/dL (3.5-5.1); Alkaline Phosphatase 106 U/L (38-126); Anion Gap 8 mmol/L (4-12); Aspartate Amino Transferase 53 U/L (17-59); Bilirubin,Total 0.5 mg/dL (0.2-1.3); Blood Urea Nitrogen 15 mg/dL (9-20); Carbon Dioxide 28 mmol/L (22-30); Chloride 95 mmol/L (98-107); Cholesterol 142 mg/dL (0-200); Estimated Glomerular Filt Rate > 60; Glucose 102 mg/dL (65-110); HDL Direct 75 mg/dL; Sodium 131 mmol/L (137-145); Total Protein 7.1 g/dL (6.3-8.2); Triglycerides 52 mg/dL (<150)
[2024-11-30 13:51] LABS: Hemoglobin A1C 5.2 % (<5.7)
[2024-11-30 13:53] LABS: Percent Iron Saturation 27 % (20-50)
[2024-11-30 13:58] LABS: Free T4 Free Thyroxine 1.29 ng/dL (0.78-2.19); LDL Cholesterol Direct 38 mg/dL
== END 2024-11-30 08:03 | disposition home or self-care (01) ==
LOC: ANHGOSHLAB 08:03
PROVIDERS: PCP Family Medicine; Visit Provider Physician Assistant
DX: E03.9 Hypothyroidism, unspecified (principal); D64.9 Anemia, unspecified; I10 Essential (primary) hypertension; E87.1 Hypo-osmolality and hyponatremia; R73.09 Other abnormal glucose
CPT/HCPCS: 36415; 80053; 80061; 83036; 83540; 83550; 84439; 84443; 85025

== ENCOUNTER 2025-02-24 00:39 | Day surgery (SDC) | payer MEDICARE, SELFPAY ==
[2025-02-09 13:47] VITALS: BMI 38.4
--- OUTSIDE RECORDS SUMMARY | 2025-02-24 00:41 | XMS_ITS | Clinical Summary ---
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 TAILOR Gender Identity Not on file Sexual Orientation Not on file Last Filed Vital Signs Vital Sign Reading Time Taken Comments Blood Pressure - - Pulse - - Temperature 36.4 C (97.5 F) 10/26/2019 1:09 PM CDT Respiratory Rate - - Oxygen Saturation - - Inhaled Oxygen Concentration - - Weight 127 kg (280 lb) 08/05/2017 2:31 PM CUSTOM TAILOR Height 170.2 cm (5' 7) 08/05/2017 2:31 PM CUSTOM TAILOR Body Mass Index 43.85 08/05/2017 2:31 PM CUSTOM TAILOR Plan of Treatment Health Maintenance Due Date Last Done Comments Colon Cancer Screening-Colonoscopy 1950 Depression Screening 1952 Fall Risk Assessment 1952 Hepatitis C Screening 1950 DTaP/Tdap/Td Vaccine (1 - Tdap) 1963 Hepatitis B Screening 1970 Abdominal Aortic Aneurysm (A AA) Screen 2017 Well Visit 65+ 2017 Covid-19 Vaccine (2023-2 5 season) 2024 03/12/2021, 09/01/2020, 08/04/2020 Influenza Vaccine (#1) 2025 , 03/12/2021, 03/09/2020, Additional history exists Pneumococcal vaccine 65+ Completed 021, 10/12/2019, 05/08/2017 Zoster Vaccine Completed 10/24/2021, 06/08/2021 Insurance [facility] MEDICARE ADVANTAGE Member Subscriber Plan / Payer (Ef fective 2019-Present) Name:Gil Friedman Relation to Subscriber:Self Name:Gil Friedman Payer ID:[id number] (NAIC) Type:[facility] MEDICARE Address: [place] [id number] [facility] MEDICARE ADVANTAGE Care Teams Insurance Policy Issue Clerk Relationship Specialty Start Date End Date Aga Mondragon MD [address] [place] [address] PCP - General Family Medicine 04/08/22 Aga Mondragon MD [address] [place] [address] Family Medicine 04/08/22
[2025-02-24 07:44] VITALS: BP 142/60; PULSE 97; RESP 16; TEMP 36.1; O2SAT 96; BMI 36.8
[2025-02-24] MEDS: LACTATED RINGERS 1,000 ML 150 ML IV CONT (07:53)
--- NOTE | 2025-02-24 08:14 | WPDANESEPPF ---
Anes - Initial Pre Proc Eval Procedure: Operation Date: 02/24/25 09:00 Proposed Procedures p Screening Colonoscopy - Gabino Guzman MD Date/Time: 02/24/25 08:14 Surgeon: Gabino Guzman MD Pre Op Diagnosis: Personal history of colon polyps, unspecified Patient Data Age: 74 Gender: M Height: 1.7 m Weight: 106.7 kg Last Vital Signs Temp 36.1 C L 02/24/25 07:44 Pulse 97 02/24/25 07:44 Resp 16 02/24/25 07:44 BP 142/60 H 02/24/25 07:44 Pulse Ox 96 02/24/25 07:44 O2 Del Method Room Air 02/24/25 07:44 Allergies Allergy/AdvReac Type Severity Reaction Status Date / Time No Known Allergies Allergy Verified 02/24/25 07:43 Home Medications ?Medication ?Instructions ?Recorded ?Confirmed ?Type aspirin 81 mg tablet,delayed 81 mg PO DAILY 06/03/19 02/24/25 History release semaglutide 0.25 mg or 0.5 mg (2 0.25 mg subcut WEEKLY 01/13/24 02/09/25 History mg/3 mL) subcutaneous pen injector (Ozempic) furosemide 20 mg tablet See Rx Instructions .Route 07/27/24 02/24/25 Rx .COMPLEX #90 tabs valsartan 80 mg tablet 80 mg PO DAILY #90 tabs 11/10/24 02/24/25 Rx levothyroxine 112 mcg tablet See Rx Instructions .Route 11/17/24 02/24/25 Rx .COMPLEX #90 tabs spironolactone 25 mg tablet See Rx Instructions .Route 11/17/24 02/24/25 Rx .COMPLEX #90 tabs tamsulosin 0.4 mg capsule See Rx Instructions .Route 12/08/24 02/24/25 Rx .COMPLEX #90 caps liothyronine 25 mcg tablet See Rx Instructions .Route 12/20/24 02/24/25 Rx .COMPLEX #90 tabs metoprolol succinate 50 mg See Rx Instructions .Route 01/05/25 02/24/25 Rx tablet,extended release 24 hr .COMPLEX #90 tabs atorvastatin 20 mg tablet See Rx Instructions .Route 01/19/25 02/24/25 Rx .COMPLEX #90 tabs nifedipine 60 mg tablet,extended See Rx Instructions .Route 01/19/25 02/24/25 Rx release .COMPLEX #90 tabs Patient hx anesthesia problems: none Family hx anesthesia problems: none Results Review: All pre-operative results and documents have been reviewed as part of the pre-operative evaluation. [facility] Past Medical History Medical History Aortic stenosis SOB (shortness of breath) Right knee pain Knee pain, left Arthritis of knee, left Acute conjunctivitis of both eyes Hypothyroidism (acquired) Elevated hemoglobin A1c Lack of physical exercise Borderline diabetes Colon cancer screening Nonrheumatic aortic (valve) stenosis Hypothyroidism, unspecified Morbid (severe) obesity due to excess calories BPH (benign prostatic hyperplasia) Essential (primary) hypertension Family History Family History Sibling Family history of premature coronary heart disease Social History Social History Social History: Smoking packs per day: 1 Smoking cigarettes per day: 20.0 Years smoked: 20 Smoking pack-years: 20.00 Smoking status: Former smoker Tobacco type: cigarettes Second hand tobacco smoke exposure: No Smoking end date: 06/09/89 Alcohol intake: current Drinks per week: 12 Substance use: never Substance use type: does not use Lack of Transportation: No Lack of Food: Never True Current Housing: I Have Housing Concerned About Future Housing: No Difficulty Paying Gas/Electric Bills: No Difficulty Paying for Meds: No Currently Unemployed: YES Education: Don't Know Difficulty w/ Childcare or Family Care: No Living arrangements: with family Occupation/Education: retired Gender identity (if verbalized by the patient): Male Sexual Orientation (if Verbalized by the Patient): Straight or Heterosexual Spiritual care concerns: No Anes - Eval Final PreProcedure Day of Procedure 02/24/25 08:14 Patient weight: obese Heart: regular rate and rhythm Lungs: clear to auscultation Airway: Mallampati scale class II Neurological: alert and oriented Last oral intake: >/= 8 hours ASA classification: III Emergent: no Anesthetic plan: proceed Anesthesia type and monitoring: general GIVS and standard monitoring Results Review: All pre-operative results and documents have been reviewed as part of the pre-operative evaluation. Informed Consent: The patient's anesthetic plan and its attendant risks and benefits were discussed with the patient/family/POA. Questions were solicited and answers provided to the satisfaction of the patient/family/POA.
--- NOTE | 2025-02-24 08:24 | P.HP_ITS ---
History of Present Illness History of Present Illness Consent: Risks, benefits, and alternatives have been discussed and questions answered. Patient agrees to proceed with procedure. Chief complaint: Personal history of colon polyps, unspecified Narrative: Gil Friedman is a 74 year old male with colon polyp in 2019 Review of Systems Review of Systems: All systems reviewed & are unremarkable except as noted in HPI and below PMFSH Past Medical History Medical History (Updated 02/24/25 @ 08:25 by Gabino Guzman MD) Colon polyp Aortic stenosis SOB (shortness of breath) Right knee pain Knee pain, left Arthritis of knee, left Acute conjunctivitis of both eyes Hypothyroidism (acquired) Elevated hemoglobin A1c Lack of physical exercise Borderline diabetes Colon cancer screening Nonrheumatic aortic (valve) stenosis Hypothyroidism, unspecified Morbid (severe) obesity due to excess calories BPH (benign prostatic hyperplasia) Essential (primary) hypertension Family History Family History Sibling Family history of premature coronary heart disease Social History Social History Social History: Smoking packs per day: 1 Smoking cigarettes per day: 20.0 Years smoked: 20 Smoking pack-years: 20.00 Smoking status: Former smoker Tobacco type: cigarettes Second hand tobacco smoke exposure: No Smoking end date: 06/09/89 Alcohol intake: current Drinks per week: 12 Substance use: never Substance use type: does not use Lack of Transportation: No Lack of Food: Never True Current Housing: I Have Housing Concerned About Future Housing: No Difficulty Paying Gas/Electric Bills: No Difficulty Paying for Meds: No Currently Unemployed: YES Education: Don't Know Difficulty w/ Childcare or Family Care: No Living arrangements: with family Occupation/Education: retired Gender identity (if verbalized by the patient): Male Sexual Orientation (if Verbalized by the Patient): Straight or Heterosexual Spiritual care concerns: No Meds Home Medications and Allergies Home Medications ?Medication ?Instructions ?Recorded ?Confirmed ?Type aspirin 81 mg tablet,delayed 81 mg PO DAILY 06/03/19 0 02/24/25 History release semaglutide 0.25 mg or 0.5 mg (2 0.25 mg subcut WEEKLY 01/13/24 02/09/25 History mg/3 mL) subcutaneous pen injector (Ozempic) furosemide 20 mg tablet See Rx Instructions .Route 0 07/27/24 02/24/25 Rx .COMPLEX #90 tabs valsartan 80 mg tablet 80 mg PO DAILY #90 tabs 10/0102/24/25 Rx levothyroxine 112 mcg tablet See Rx Instructions .Rout e 11/17/24 02/24/25 Rx .COMPLEX #90 tabs spironolactone 25 mg tablet See Rx Instructions .Route 11/17/24 02/24/25 Rx .COMPLEX #90 tabs tamsulosin 0.4 mg capsule See Rx Instructions .Route 0 12/08/24 02/24/25 Rx .COMPLEX #90 caps liothyronine 25 mcg tablet See Rx Instructions .Route 12/20/24 02/24/25 Rx .COMPLEX #90 tabs metoprolol succinate 50 mg See Rx Instructions .Route 01/05/25 02/24/25 Rx tablet,extended release 24 hr .COMPLEX #90 tabs atorvastatin 20 mg tablet See Rx Instructions .Route 0 01/19/25 02/24/25 Rx .COMPLEX #90 tabs nifedipine 60 mg tablet,extended See Rx Instructions . Route 01/19/25 02/24/25 Rx release .COMPLEX #90 tabs Allergies Allergy/AdvReac Type Severity Reaction Status Date / Time No Known Allergies Allergy Verified 02/24/25 07:43 Vital Signs Vital Signs - 24 hr 02/24/25 07:44 Temperature 97 F L Pulse Rate 97 Respiratory Rate 16 Blood Pressure 142/60 H Pulse Oximetry 96 Oxygen Delivery Room Air Exam Const: General: comfortable and no acute distress HENMT: Face/Nose/Sinus: Normal nares present Eyes: General: appearance normal, both eyes and all related structures Neck: Neck: no JVD Resp: Auscultation: clear to auscultation bilaterally Cardio: Rate: regular rate Rhythm: regular rhythm GI: Inspection: non-distended GI Palp: Yes Soft to palpation Skin: General skin exam: normal color Neuro: Speech: normal speech Extrem: General: normal to inspection Psych: Mental Status: mental status grossly normal Assessment and Plan Assessment and plan (1) Colon polyp: Code(s): K63.5 - Polyp of colon Status: Acute Assessment and Plan: colonoscopy
--- NOTE | 2025-02-24 08:37 | S_PTH ---
PATIENT: Gil Friedman LOC: [facility] Pool#:[id number] AGE/SX: 74/M ROOM: RE02/24/[address]: Gabino Guzman MD : 1950 BED: DIS: 02/24/2025 SPEC #: [id number] RECD: 02/24/25 09:55 STATUS: MAYTE REMaranda #: [id number] MYA: 02/24/25 08:[address]: Gabino Guzman DEPT: [facility] Surgical RECD BY: Deysi Skinner ENTERED: 02/24/25 09:55 SP TYPE: Surgical OTHR DR: Elkin Gonzalez MD Tissues: A - Colon Polypectomy B - Colon Polypectomy Procedures: Hematoxylin and Eosin Stain Gross and Microscopic Level 4
[2025-02-24 08:38] VITALS: BP 128/68; PULSE 72; RESP 16; O2SAT 95
[2025-02-24 08:48] VITALS: BP 126/67; PULSE 77; RESP 16; O2SAT 98
[2025-02-24 08:58] VITALS: BP 126/60; PULSE 74; RESP 23; O2SAT 96
== END 2025-02-24 09:09 | disposition home or self-care (01) ==
PROVIDERS: PCP Family Medicine; Visit Provider Internal Medicine Gastroenterology
PROC: 0DJD8ZZ Inspection of Lower Intestinal Tract, Via Natural or Artificial Opening Endoscopic (ICD-10-PCS; CPT 45378; principal; 2025-02-24 09:00)
DX: Z12.11 Encounter for screening for malignant neoplasm of colon (principal); K51.40 Inflammatory polyps of colon without complications; D12.2 Benign neoplasm of ascending colon; K57.30 Diverticulosis of large intestine without perforation or abscess without bleeding; K64.8 Other hemorrhoids; Z87.891 Personal history of nicotine dependence; E66.9 Obesity, unspecified; Z68.36 Body mass index [BMI] 36.0-36.9, adult
CPT/HCPCS: 45385; 88305; J2003; J2704; J7120

== ENCOUNTER 2025-05-31 09:21 | Outpatient (CLI) | payer MEDICARE, SELFPAY ==
--- OUTSIDE RECORDS SUMMARY | 2025-05-31 09:38 | XMS_ITS | Clinical Summary ---
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 Gender Identity Not on file Sexual Orientation Not on file Last Filed Vital Signs Vital Sign Reading Time Taken Comments Blood Pressure - - Pulse - - Temperature 36.4 C (97.5 F) 10/26/2019 1:09 PM CDT Respiratory Rate - - Oxygen Saturation - - Inhaled Oxygen Concentration - - Weight 127 kg (280 lb) 08/05/2017 2:31 PM POWDER ROOM ATTENDANT Height 170.2 cm (5' 7) 08/05/2017 2:31 PM POWDER ROOM ATTENDANT Body Mass Index 43.85 08/05/2017 2:31 PM POWDER ROOM ATTENDANT Plan of Treatment Not on file Insurance [facility] MEDICARE ADVANTAGE [facility] MEDICARE ADVANTAGE Care Teams Bootmaker Relationship Specialty Start Date End Date Aga Mondragon MD [address] [place] [address] PCP - General Family Medicine 04/08/22 Aga Mondragon MD [address] [place] [address] Family Medicine 04/08/22
[2025-05-31 13:32] LABS: Hemoglobin A1C 5.2 % (<5.7)
[2025-05-31 13:34] LABS: Alanine Aminotransferase 18 U/L (6-50); Albumin Level 4.0 g/dL (3.5-5.1); Alkaline Phosphatase 99 U/L (38-126); Anion Gap 7 mmol/L (4-12); Aspartate Amino Transferase 45 U/L (17-59); Bilirubin,Total 0.6 mg/dL (0.2-1.3); Blood Urea Nitrogen 20 mg/dL (9-20); Calcium 9.0 mg/dL (8.4-10.2); Carbon Dioxide 30 mmol/L (22-30); Chloride 98 mmol/L (98-107); Estimated Glomerular Filt Rate > 60; Glucose 95 mg/dL (65-110); Potassium 4.0 mmol/L (3.4-5.0); Sodium 135 mmol/L (137-145); Total Protein 7.2 g/dL (6.3-8.2)
[2025-05-31 14:11] LABS: Thyroid Stimulating Hormone 1.520 uIU/mL (0.465-4.680)
== END 2025-05-31 09:22 | disposition home or self-care (01) ==
LOC: ANHGOSHLAB 09:22
PROVIDERS: PCP Family Medicine; Visit Provider Family Medicine
DX: R73.03 Prediabetes (principal); I10 Essential (primary) hypertension; E03.9 Hypothyroidism, unspecified
CPT/HCPCS: 36415; 80053; 83036; 84443